=== PATIENT | female | born 1975 | race Caucasian/White ===

== ENCOUNTER 2023-02-03 23:14 | Emergency (ER) | payer MEDICAID, SELFPAY ==
--- NOTE | 2023-02-03 23:07 | ECG_ITS ---
APPROVED REPORT Exam: Resting ECG HR:61 bpm ECG Measurements Heart Rate 61 AXES HI 169 P 51 QRSd 117 QRS 37 QT 466 T 126 QTc 468 Conclusion SINUS RHYTHM WITH OCCASIONAL VENTRICULAR PREMATURE COMPLEXES LOW QRS VOLTAGE IN PRECORDIAL LEADS [QRS DEFLECTION < 1.0 mV IN CHEST LEADS] POSSIBLE ANTERIOR MYOCARDIAL INFARCTION , OF INDETERMINATE AGE [30 ms Q WAVE IN V3/V4, OR R < 0.2 mV IN V4] ABNORMAL ECG UNCONFIRMED REPORT Electronically signed by : Keo Kaur MD 02/06/2023 16:28:36
[2023-02-03 23:15] VITALS: BP 179/80; PULSE 64; PULSE 69; RESP 20; RESP 24; TEMP 36.8; O2SAT 96; O2SAT 98; BMI 46.0; BMI 49.6
--- NOTE | 2023-02-03 23:16 | XR_ITS ---
PROCEDURE INFORMATION: Exam: XR Chest Exam date and time: 02/03/2023 11:33 PM Age: 47 years old Clinical indication: Sternal or substernal pain; Additional info: Cp TECHNIQUE: Imaging protocol: Radiologic exam of the chest. Views: 1 view. COMPARISON: No relevant prior studies available. FINDINGS: Lungs: Unremarkable. No consolidation. Pleural spaces: Unremarkable. No pleural effusion. No pneumothorax. Heart/Mediastinum: Unremarkable. No cardiomegaly. Bones/joints: Unremarkable. IMPRESSION: No acute findings.
--- NOTE | 2023-02-03 23:17 | CT_ITS ---
PROCEDURE INFORMATION: Exam: CT Head Without Contrast Exam date and time: 02/03/2023 11:34 PM Age: 47 years old Clinical indication: Numbness / parasthesia; Left; Additional info: Lt side numbness TECHNIQUE: Imaging protocol: Computed tomography of the head without contrast. Radiation optimization: All CT scans at this facility use at least one of these dose optimization techniques: automated exposure control; mA and/or kV adjustment per patient size (includes targeted exams where dose is matched to clinical indication); or iterative reconstruction. REPORTING DATA: Count of CT and Cardiac NM exams in prior 12 months: This patient has received 0 known CTs and 0 known cardiac nuclear medicine studies in the 12 months prior to the current study. COMPARISON: [facility] CT HEAD W/O CONTRAST 10/03/2016 7:25 PM FINDINGS: Brain: Normal. No hemorrhage. Unremarkable white matter. No mass effect. Cerebral ventricles: No ventriculomegaly. Paranasal sinuses: Visualized sinuses are unremarkable. No fluid levels. Mastoid air cells: Visualized mastoid air cells are well aerated. Bones/joints: Unremarkable. No acute fracture. Soft tissues: Unremarkable. IMPRESSION: No acute intracranial abnormality.
[2023-02-03 23:19] VITALS: PULSE 61
--- NOTE | 2023-02-03 23:21 | PC.NURSE ---
called and spoke with jackie allisonhouse sitter to obtain ER records from current ER visit for same problem
[2023-02-03 23:23] LABS: Basophils # 0.1 K/mm3 (0-0.2); Basophils % 0.6 % (0.1-2.0); Eosinophils # 0.1 K/mm3 (0.0-0.4); Eosinophils % 1.4 % (0.1-12.0); Hematocrit 41.1 % (37.0-47.0); Lymphocytes % 25.4 % (10-50); Mean Corpuscular HGB Conc 31.6 g/dL (31.8-35.4); Mean Corpuscular Hemoglobin 28.6 pg (27.0-31.2); Mean Corpuscular Volume 90.3 fl (81-99); Mean Platelet Volume 8.4 fl (7.4-10.4); Monocytes # 0.5 K/mm3 (0.1-1.0); Neutrophils # 5.1 K/mm3 (1.8-7.8); Neutrophils % 65.6 % (37.0-80.0); Platelet Count 263 K/mm3 (142-424); Red Blood Count 4.55 M/mm3 (4.20-5.40); Red Cell Distribution Width 15.1 % (11.5-17.5); White Blood Count 7.8 K/mm3 (4.8-10.8)
[2023-02-03 23:29] LABS: Alanine Aminotransferase 31 U/L (12-78); Albumin Level 3.8 g/dl (3.5-5.0); Albumin/Globulin Ratio 1.1 (1.1-1.8); Alkaline Phosphatase 83 U/L (38-126); Aspartate Amino Transferase 34 U/L (14-36); Bilirubin,Total 0.4 mg/dl (0.2-1.3); Blood Urea Nitrogen 13 mg/dl (7-17); Calcium 8.3 mg/dl (8.4-10.2); Carbon Dioxide 29 mmol/L (22.0-30.0); Chloride 102 mmol/L (98-107); Creatinine Clearance Estimated 70 mL/min (50-200); Estimated Glomerular Filt Rate 76 ml/min (>60); GFR (African American) 92 ML/MIN (>60); Globulin 3.4 g/dL (1.3-3.2); Glucose 141 mg/dl (74-100); Sodium 139 mmol/L (136-145); Total Protein,Serum 7.2 g/dl (6.3-8.2)
[2023-02-03 23:34] LABS: C-Reactive Protein 9.4 mg/L (0-4)
--- NOTE | 2023-02-03 23:36 | PC.NURSE ---
patient gone to RAD at this time.
[2023-02-03 23:38] LABS: NT Pro Brain Natriuretic Pep. 2230 pg/mL (0-125)
[2023-02-03 23:43] LABS: Troponin I 0.02 ng/ml (0.00-0.034)
[2023-02-03 23:45] VITALS: PULSE 66; RESP 19; O2SAT 98
[2023-02-03 23:46] LABS: Erythrocyte Sedimentation Rate 21 mm/hr (0-20)
[2023-02-03 23:59] LABS: Anion Gap 11.6 mEq/L (5-15); Potassium 3.6 mmoL/L (3.5-5.1)
[2023-02-04] VITALS: PULSE 65; RESP 15; O2SAT 98
[2023-02-04 00:31] VITALS: BP 193/72; PULSE 64; O2SAT 98
[2023-02-04 00:37] LABS: Microscopic, Urine URINE MICROSCOPIC (MICROSCOPIC)
[2023-02-04 00:43] LABS: Appearance,Urine CLEAR (Clear); Bilirubin,Urine Negative (Negative); Blood, Urine 1+ (Negative); Color,Urine YELLOW (Yellow); Glucose,Urine (UA) Negative (Negative); Ketones,Urine Negative (Negative); Leukocyte Esterase,Urine TRACE (Negative); Nitrate,Urine Negative (Negative); PH,Urine 6.5 (5.0-8.5); Protein,Urine Negative (Negative); Specific Gravity, Urine 1.025 (1.005-1.030)
[2023-02-04 00:56] LABS: Bacteria,Urine 1+ /lpf; Mucus,Urine 1+ /lpf
[2023-02-04 01:05] VITALS: BP 159/74
--- NOTE | 2023-02-04 01:28 | PC.NURSE ---
Called [facility] to check on getting records sent over. they are going to send over again at this time.
[2023-02-04 02:22] LABS: Troponin I 0.02 ng/ml (0.00-0.034)
--- NOTE | 2023-02-04 02:30 | [facility].EDCP ---
Discharge Plan Disposition Patient Disposition: Home, Self-Care Prescriptions Prescriptions: No Action albuterol sulfate 2.5 mg /3 mL (0.083 %) solution for nebulization 2.5 mg inhalation Q6 Label Comments: USE 1 VIAL VIA NEBULIZER EVERY 6 HOURS NEEDED NEED FOLLOWUP FOR REFILLS lamotrigine 25 mg tablet 25 mg PO TID Label Comments: TAKE 1 TABLET BY MOUTH TWICE A DAY gabapentin 800 mg tablet 800 mg PO TID Label Comments: TAKE 1 TABLET BY MOUTH THREE TIMES A DAY naproxen sodium 550 mg tablet 550 mg PO BID Label Comments: TAKE 1 TABLET BY MOUTH EVERY 12 HOURS NEEDED FOR PAIN pravastatin 20 mg tablet 20 mg PO HS Label Comments: TAKE 1 TABLET BY MOUTH EVERY DAY metformin 500 mg tablet extended release 24 hr 500 mg PO DAILY Label Comments: TAKE 1 TABLET BY MOUTH EVERY DAY WITH EVENING MEAL escitalopram oxalate 10 mg tablet 10 mg PO DAILY Label Comments: TAKE 1 TABLET BY MOUTH EVERY DAY Referrals Follow up/Referrals: Hernandez Botello MD [Staff Physician] - See instructions Provider,MD Carlos [Primary Care Provider] - See instructions Clinical Impressions Clinical Impression: Atypical chest pain, Elevated brain natriuretic peptide (BNP) level Instructions Patient Instructions: DI for Atypical Chest Pain Discharge ED Provider: Pavreen (ED)Gen Chest Pain HPI General Chief Complaint: Chest Pain Stated Complaint: chestpain Time Seen by Provider: 02/03/23 23:40 Mode of Arrival: EMS Source of Information: Patient, EMS and Medical Record Limitations: No Limitations Description of Symptoms (Recalled from ER Triage Doc. by RN): Pt brought in by [facility] with complaints of left anterior chest pain non radiating and left arm numbness. History of Present Illness HPI narrative: pt with episode of chest pain and brought by ems - no reported chest pain at time of interview - complaint: chest pain Onset (ago): hour(s) Duration: now resolved Activity at onset: light activity Pain location: left chest Severity: moderate Risk Factors for CAD: Family Hx of CAD, Diabetes and Smoking Treatments prior to or on arrival for Cardiac Chest Pain: none NAIDA Score for Non-Stemi Age of Patient: 40-49 years old Heart Rate: 50-69 bpm Systolic Blood Pressure: 140-159 mmHg Serum Creatinine: 0.80-1.19 mg/dl CHF [place] Class: II-Pulmonary Rales or Jug Other Risk Factors: None Non-Stemi Risk Score: 79 Risk Stratification: 1-108 = Low Risk Related Data On Oral Contraceptives: No Home Medications Medication Instructions Recorded Confirmed albuterol sulfate 2.5 mg/3 mL 2.5 mg inhalation Q6 Breathing 02/04/23 02/04/23 (0.083 %) solution for nebulization problems escitalopram oxalate 10 mg tablet 10 mg PO DAILY Depression 02/04/23 02/04/23 gabapentin 800 mg tablet 800 mg PO TID Pain 02/04/23 02/04/23 lamotrigine 25 mg tablet 25 mg PO TID seizures 02/04/23 02/04/23 metformin 500 mg tablet,extended 500 mg PO DAILY Diabetes 02/04/23 02/04/23 release 24 hr naproxen sodium 550 mg tablet 550 mg PO BID Pain 02/04/23 02/04/23 pravastatin 20 mg tablet 20 mg PO HS High cholesterol 02/04/23 02/04/23 Allergies Allergy/AdvReac Type Severity Reaction Status Date / Time codeine [CODEINE] Allergy Mild Unverified 08/11/17 15:01 [facility] Disclaimer: The information contained in this section may have been updated after the patient was seen, as this information can be updated by other users. Social History Smoking Status: Current every day smoker alcohol intake: never current occupational status: unemployed Travel in the last 8 weeks: None ROS Obtained: Yes All systems reviewed & no additional complaints except as documented Physical Exam General General appearance: alert and obese Head Head exam: normocephalic Eye Eye exam: Present PERRL and EOMI ENT ENT exam: Present mucous membranes moist Neck Neck exam: Prese
[2023-02-04 02:44] VITALS: BP 155/78; PULSE 67; RESP 17; TEMP 36.8; O2SAT 98
[2023-02-06 18:09] LABS: Lamotrigine (Lamictal) <1.0 ug/mL (2.0-20.0)
== END 2023-02-04 03:41 | disposition home or self-care (01) ==
PROVIDERS: Emergency Provider Emergency Medicine
DX: R07.89 Other chest pain (principal); R20.0 Anesthesia of skin; F17.200 Nicotine dependence, unspecified, uncomplicated; E66.9 Obesity, unspecified
CPT/HCPCS: 70450; 71045; 80053; 80168; 81001; 83880; 84145; 84484; 85025; 85651; 86140; 93005; 96360; 99285

== ENCOUNTER 2023-11-30 22:55 | Outpatient (CLI) | payer MEDICAID, SELFPAY ==
[2023-11-30 19:13] LABS: Basophils # 0.1 K/mm3 (0-0.2); Basophils % 1.5 % (0.1-2.0); Eosinophils # 0.3 K/mm3 (0.0-0.4); Eosinophils % 2.7 % (0.1-12.0); Lymphocytes # 2.5 K/mm3 (0.7-4.5); Lymphocytes % 27.6 % (10-50); Mean Corpuscular HGB Conc 31.8 g/dL (31.8-35.4); Mean Corpuscular Hemoglobin 29.5 pg (27.0-31.2); Mean Corpuscular Volume 92.8 fl (81-99); Monocytes # 0.6 K/mm3 (0.1-1.0); Monocytes % 6.2 % (1.7-9.3); Neutrophils # 5.7 K/mm3 (1.8-7.8); Platelet Count 334 K/mm3 (142-424); Red Blood Count 5.07 M/mm3 (4.20-5.40); Red Cell Distribution Width 13.9 % (11.5-17.5); White Blood Count 9.1 K/mm3 (4.8-10.8)
[2023-11-30 19:25] LABS: Alanine Aminotransferase 50 U/L (12-78); Albumin Level 3.7 g/dl (3.5-5.0); Albumin/Globulin Ratio 1.1 (1.1-1.8); Alkaline Phosphatase 109 U/L (38-126); Anion Gap 10.2 mEq/L (5-15); Aspartate Amino Transferase 51 U/L (14-36); Bilirubin,Total 0.4 mg/dl (0.2-1.3); Blood Urea Nitrogen 13 mg/dl (7-17); Calcium 9.1 mg/dl (8.4-10.2); Carbon Dioxide 28 mmol/L (22.0-30.0); Chloride 103 mmol/L (98-107); Chol/HDL Ratio 3.8 (1-3.5); Cholesterol 203 mg/dl (140-200); Estimated Glomerular Filt Rate 76 ml/min (>60); GFR (African American) 92 ML/MIN (>60); Globulin 3.4 g/dL (1.3-3.2); Glucose 130 mg/dl (74-100); HDL Cholesterol 53 mg/dl (40-60); Potassium 4.2 mmoL/L (3.5-5.1); Sodium 137 mmol/L (136-145); Total Protein,Serum 7.1 g/dl (6.3-8.2); Triglycerides 168 mg/dl (30-150); VLDL Cholesterol 34 mg/dL (0-40)
[2023-11-30 19:38] LABS: Direct LDL Cholesterol 95.75 mg/dL (100-129)
[2023-11-30 19:51] LABS: 25-OH Vitamin D, Total < 12.8 ng/mL (30-100)
[2023-11-30 19:58] LABS: Thyroid Stimulating Hormone 1.35 uIU/mL (0.465-4.68)
== END 2023-11-30 23:59 ==
LOC: LAB.DROPOF 22:55
PROVIDERS: PCP Physician Assistant; Visit Provider Physician Assistant
DX: E11.9 Type 2 diabetes mellitus without complications (principal); E78.5 Hyperlipidemia, unspecified; E55.9 Vitamin D deficiency, unspecified; Z79.84 Long term (current) use of oral hypoglycemic drugs; Z79.899 Other long term (current) drug therapy
CPT/HCPCS: 80053; 80061; 82306; 84443; 85025

== ENCOUNTER 2024-01-08 08:54 | Emergency (ER) | payer MEDICAID, SELFPAY ==
[2024-01-08 08:56] VITALS: BP 199/90; PULSE 71; RESP 20; TEMP 36.7; O2SAT 98; BMI 49.6
--- NOTE | 2024-01-08 08:56 | ED_ITS ---
Discharge Plan Disposition Patient Disposition: Home, Self-Care Condition: Good Prescriptions Prescriptions: New epinephrine [EpiPen 2-Geoff] 0.3 mg/0.3 mL auto-injector 0.3 mg IM Q10M PRN (Reason: anaphylaxis) Qty: 2 0RF Rx Instructions: for 2 doses doxycycline hyclate 100 mg tablet,delayed release (DR/EC) 100 mg PO BID 7 Days Qty: 14 0RF No Action albuterol sulfate 2.5 mg /3 mL (0.083 %) solution for nebulization 2.5 mg inhalation Q6 Qty: 180 0RF escitalopram oxalate 10 mg tablet 10 mg PO DAILY Qty: 90 0RF lamotrigine 25 mg tablet 25 mg PO TID 30 Days Qty: 90 2RF metformin 500 mg tablet extended release 24 hr 500 mg PO DAILY Qty: 90 0RF pravastatin 20 mg tablet 20 mg PO HS Qty: 90 0RF ergocalciferol (vitamin D2) 1,250 mcg (50,000 unit) capsule 1,250 mcg PO WEEKLY Qty: 13 3RF (DME) blood-glucose meter Kit See Rx Instructions .ROUTE .MEDSUPPLY Qty: 1 0RF Rx Instructions: As directed or bid Please give patient the glucometer,test stripes and lancets that her Insurance will pay for. Referrals Follow up/Referrals: Kiarra Escalona PA [Primary Care Provider] - See instructions Activity Restrictions/Add. Instructions Additional Instructions/Restrictions: Please take the antibiotics as directed for your cellulitis and monitor that area. I have also written a prescription for an EpiPen as you requested. Please return with any new or worsening symptoms. Clinical Impressions Clinical Impression: Cellulitis Instructions Patient Instructions: DI for Cellulitis -- Adult, Cellulitis Discharge ED Provider: Yousuf Braxton General Adult HPI General Chief complaint: Skin/Abscess/Foreign Body Stated complaint: spider bite left leg Time Seen by Provider: 01/08/24 08:56 History of Present Illness HPI narrative: The patient presents with a chief complaint of a suspected spider bite on her leg, which she first noticed two days ago. The bite has been increasing in size and is now hot to the touch. The patient identified the onset of symptoms while in the bathtub and is concerned due to a history of being allergic to various insects and having recurrent cellulitis, particularly in the legs. The patient describes the current sensation at the bite site as painful, not itchy, and expresses a burning sensation. She has a history of cellulitis that was resistant to treatment with antibiotics in the past. The patient requests her prescriptions, including an EpiPen, to be filled at a specific pharmacy where she usually gets her medications. Please note that above description of symptoms, in this electronic medical record under categorization of recalled from ER triage doctor by RN are reflective of an initial nursing assessment, however, is not reflective of my full history and physical exam that was personally taken and clarified. Consequentially, this preceding description of symptoms, which may include the patient's categorized chief complaint in the EMR, do not reflect my personal clinical impression, and the ultimate description of history of present illness and patient stated complaints should be deferred to this section of the note. Unless stated otherwise or congruent with this section of the note, additional signs, symptoms, or incongruence should be interpreted as inaccurate with my clinical impression. Related Data Previous Rx's Medication Instructions Recorded albuterol sulfate 2.5 mg/3 mL 2.5 mg (3 mL) inhalation Q6 12/21/23 (0.083 %) solution for nebulization Breathing problems #180 mL blood-glucose meter #1 ea 12/21/23 ergocalciferol (vitamin D2) 1,250 1,250 mcg PO WEEKLY #13 caps 12/21/23 mcg (50,000 unit) capsule escitalopram oxalate 10 mg tablet 10 mg PO DAILY Depression #90 tabs 12/21/23 lamotrigine 25 mg tablet 25 mg PO TID seizures 30 days #90 12/21/23 tabs metformin 500 mg tablet,extended 500 mg PO DAILY Diabetes #90 tabs 12/21/23 release 24 hr pravastatin 20 mg tablet 20 mg PO HS High cholesterol #90 12/21/23 tabs doxycycline hyclate 100 mg 100 mg PO BID 7 days #14 tabs 01/08/24 tablet,delayed release epinephrine 0.3 mg/0.3 mL 0.3 mg (0.3 mL) IM Q10M PRN 01/08/24 injection, auto-injector (EpiPen anaphylaxis #2 ea 2-Geoff) Allergies Allergy/AdvReac Type Severity Reaction Status Date / Time codeine [CODEINE] Allergy Severe Anaphylaxis Verified 01/08/24 09:36 red dye Allergy Severe Anaphylaxis Verified 01/08/24 09:36 venom-wasp Allergy Severe Anaphylaxis Verified 01/08/24 09:36 [facility] Disclaimer: The information contained in this section may have been updated after the patient was seen, as this information can be updated by other users. Medical History (Updated 01/08/24 @ 09:30 by Yousuf Braxton MD) Stroke Heart attack Surgical History (Updated 11/30/23 @ 13:18 by Reina Mao MA) [place] teeth removed H/O hysterectomy with oophorectomy Family History (Updated 11/30/23 @ 13:16 by Reina Mao MA) Other Cancer Diabetes Heart attack Hypertension Stroke Social History (Updated 02/04/23 @ 02:51 by Gen CORONADO)MD) Smoking Status: Current every day smoker alcohol intake: never current occupational status: unemployed Travel in the last 8 weeks: None ROS Obtained: Yes other As per HPI Physical Exam General General appearance: alert and in no apparent distress Head Head exam: atraumatic and normocephalic Eye Eye exam: Present normal appearance Neck Neck exam: Present normal inspection Chest Chest inspection: Present normal inspection and symmetric chest wall rise Respiratory Respiratory exam: Present normal lung sounds bilaterally; Absent respiratory distress Cardiovascular Cardiovascular exam: Present regular rate and normal rhythm Abdominal Exam Abdominal exam: Present soft Neurological Exam Neurological exam: Present alert and oriented X3 Psychiatric Psychiatric exam: Present normal affect and normal mood Skin Skin exam: Present warm and dry Other Other exam information: Erythema, tenderness to palpation, measuring approximately 3 cm, on posterior aspect of left thigh, associated induration, fluctuance, or pain beyond margins of lesion. Medical Decision Making Medical Records Medical records reviewed: Yes I reviewed the patient's medical records. Moise Inquiry Pt receiving controlled substance: No Vital Signs: 01/08/24 08:56 01/08/24 09:34 Temperature 98.0 F 98.0 F Temperature Source Oral Oral Pulse Rate 70 Pulse Rate [Right] 71 Respiratory Rate 20 19 Blood Pressure 156/72 H Blood Pressure [Left Arm] 199/90 H Blood Pressure Mean [Left Arm] 126 Blood Pressure Source [Left Arm] Automatic Cuff 02 Sat by Pulse Oximetry 98 Oxygen Delivery Method Room Air Room Air Medical Decision Narrative: Patient with history and exam per above presenting for evaluation of lesion on posterior aspect of left thigh Diagnoses considered include cellulitis, abscess, insect bite, no clinical evidence at this time of NSTI, or other acute surgical pathology ED workup and treatment included: [id number] ultrasound of lesion, revealing cobblestoning, no fluid collection My clinical impression at this time is most consistent with cellulitis, for which patient will be treated with course of antibiotics I discussed my clinical impression with patient and answered all questions. At this time, the evidence for any other entities in the differential is insufficient to warrant any further testing or ED observation. This was explained to the patient. The patient was advised that persistent or worsening symptoms require further evaluation. I confirmed the patient's understanding of this discussion. Critical Care Critical Care Time Critical Care Time: No
[2024-01-08 09:34] VITALS: BP 156/72; PULSE 70; RESP 19; TEMP 36.7; O2SAT 98
== END 2024-01-08 09:40 | disposition home or self-care (01) ==
LOC: ER 09:36
PROVIDERS: Emergency Provider Emergency Medicine; PCP Physician Assistant
DX: L03.116 Cellulitis of left lower limb (principal)
CPT/HCPCS: 99283

== ENCOUNTER 2024-01-08 11:20 | Outpatient (CLI) | payer MEDICAID, SELFPAY ==
--- NOTE | 2024-01-08 11:27 | CT_ITS ---
FINAL REPORT TECHNIQUE: Thin section axial images were obtained from the lung apices to the upper abdomen by computed tomography. Reformatted images were obtained and reviewed. This study was performed with techniques to keep radiation doses al low as reasonably achievable (ALARA). Individualized dose reduction techniques using automated exposure control or adjustment of mA and/or kV according to the patient's size were employed. CLINICAL HISTORY: lung cancer screening smoker 35 years, 1 ppd; currently vapes, former cigarette smoker hx of uterine cancer father hx of lung cancer hx COPD, emphysema, CHF FINDINGS: CHEST CT LOW DOSE CTDI vol (mGy): 2.90 DLP (mGy-cm): 80.73 There is no axillary adenopathy. There is no mediastinal or hilar mass or adenopathy. The heart is normal in size. There is no pericardial or pleural effusion. There is mild pulmonary scarring. Lung window images demonstrate a 4 mm nodule in the left lower lobe on image #33. A calcified granuloma is seen in the left lower lobe.. Limited images of the upper abdomen reveal postoperative changes from cholecystectomy.. IMPRESSION: Lung-RADS category 2. Recommend 12 month follow up low dose chest CT. Authenticated and ERN
[2024-01-08] MEDS: ALBUTEROL 0.083% 2.5 MG/3 ML NEB IH (13:48)
== END 2024-01-08 23:59 | disposition home or self-care (01) ==
LOC: RAD 11:21
PROVIDERS: PCP Physician Assistant; Visit Provider Physician Assistant
DX: Z87.891 Personal history of nicotine dependence (principal); R06.02 Shortness of breath
CPT/HCPCS: 71271; 94060; 94726; 94729

== ENCOUNTER 2024-03-26 19:16 | Emergency (ER) | payer MEDICAID, SELFPAY ==
[2024-03-26 19:16] VITALS: BP 154/92; PULSE 104; RESP 16; TEMP 37.5; O2SAT 95; BMI 41.3
--- NOTE | 2024-03-26 19:47 | ED_ITS ---
Discharge Plan Disposition Patient Disposition: Home, Self-Care Chief Complaint: Allergic Reaction Prescriptions Prescriptions: No Action (DME) blood-glucose meter [OneTouch Ultra2 Meter] Misc See Rx Instructions .ROUTE .MEDSUPPLY Qty: 1 Patient Comments: USE DIRECTED Rx Instructions: As directed Ozempic 0.25 mg or 0.5 mg (2 mg/3 mL) pen injector 0.25 mg SQ WEEKLY Qty: 3 2RF Rx Instructions: for 4 weeks escitalopram oxalate 10 mg tablet 10 mg PO DAILY Qty: 90 0RF lamotrigine 25 mg tablet 25 mg PO TID 30 Days Qty: 90 2RF pravastatin 20 mg tablet 20 mg PO HS Qty: 90 0RF ergocalciferol (vitamin D2) 1,250 mcg (50,000 unit) capsule 1,250 mcg PO WEEKLY Qty: 14 3RF amitriptyline 10 mg tablet 10 mg PO HS Qty: 30 2RF albuterol sulfate 2.5 mg /3 mL (0.083 %) solution for nebulization 2.5 mg inhalation Q6 Qty: 180 0RF (DME) OneTouch Ultra Test Strip See Rx Instructions .ROUTE .COMPLEX Qty: 100 2RF Dose Instruction: DIRECTED OR TWICE DAILY Rx Instructions: DIRECTED OR TWICE DAILY epinephrine [EpiPen 2-Geoff] 0.3 mg/0.3 mL auto-injector 0.3 mg IM Q10M PRN (Reason: anaphylaxis) Qty: 2 0RF Rx Instructions: for 2 doses Referrals Follow up/Referrals: eKo Kaur MD [Primary Care Provider] - See instructions Clinical Impressions Clinical Impression: Bee sting Print Language Print Language: [place] Verde[place] Discharge ED Provider: Ameya Amato General Adult HPI General Chief complaint: Allergic Reaction Stated complaint: allergic reaction Time Seen by Provider: 03/26/24 19:20 Mode of Arrival: EMS Source of Information: Patient Limitations: No Limitations Description of Symptoms (Recalled from ER Triage Doc. by RN): patient stated she was walking her daily walk when she seen a bees nest. patient assumes thats when she was stung approxiamately 3 times on her legs. patient did not use her epi pen, she stated that it hurts and she couldnt use it on her self. History of Present Illness HPI narrative: Patient is a 49-year-old female past medical history of the allergy currently has EpiPen who presents emergency department for evaluation of a bee sting. Sting happened approximately an hour prior to arrival over her left leg. She did not use her EpiPen. Prior to arrival EMS gave Benadryl, Solu-Medrol. EpiPen was not administered. She presents here for continued evaluation Related Data Home Medications ?Medication ?Instructions ?Recorded ?Confirmed blood-glucose meter (OneTouch #1 ea 02/18/24 02/18/24 Ultra2 Meter) Previous Rx's ?Medication ?Instructions ?Recorded albuterol sulfate 2.5 mg/3 mL 2.5 mg (3 mL) inhalation Q6 12/21/23 (0.083 %) solution for nebulization Breathing problems #180 mL epinephrine 0.3 mg/0.3 mL 0.3 mg (0.3 mL) IM Q10M PRN 01/08/24 injection, auto-injector (EpiPen anaphylaxis #2 ea 2-Geoff) blood sugar diagnostic (OneTouch #100 ea 02/17/24 Ultra Test strips) amitriptyline 10 mg tablet 10 mg PO HS neuropathy #30 tabs 02/18/24 ergocalciferol (vitamin D2) 1,250 1,250 mcg PO WEEKLY #14 caps 02/18/24 mcg (50,000 unit) capsule escitalopram oxalate 10 mg tablet 10 mg PO DAILY Depression #90 tabs 02/18/24 lamotrigine 25 mg tablet 25 mg PO TID seizures 30 days #90 02/18/24 tabs pravastatin 20 mg tablet 20 mg PO HS High cholesterol #90 02/18/24 tabs semaglutide 0.25 mg or 0.5 mg (2 0.25 mg (0.368 mL) SQ WEEKLY #3 mL 02/18/24 mg/3 mL) subcutaneous pen injector (Ozempic) Allergies Allergy/AdvReac Type Severity Reaction Status Date / Time codeine [CODEINE] Allergy Severe Anaphylaxis Verified 02/18/24 14:41 red dye Allergy Severe Anaphylaxis Verified 02/18/24 14:41 venom-wasp Allergy Severe Anaphylaxis Verified 02/18/24 14:41 paprika Allergy Mild Verified 03/26/24 19:35 [facility] Disclaimer: The information contained in this section may have been updated after the patient was seen, as this information can be updated by other users. Medical History (Updated 03/26/24 @ 19:49 by Ameya Amato MD) Stroke Heart attack Surgical History (Updated 11/30/23 @ 13:18 by Reina Mao MA) [place] teeth removed H/O hysterectomy with oophorectomy Family History (Updated 11/30/23 @ 13:16 by Reina Mao MA) Other Cancer Diabetes Heart attack Hypertension Stroke Social History (Updated 02/04/23 @ 02:51 by Gen CORONADO)MD) Smoking Status: Current every day smoker alcohol intake: never current occupational status: unemployed Travel in the last 8 weeks: None ROS Obtained: Yes Systems reviewed as appropriate & no additional complaints except as documented Physical Exam General General appearance: alert and in no apparent distress Head Head exam: atraumatic and normocephalic Eye Eye exam: Present PERRL and EOMI ENT ENT exam: Present mucous membranes moist Neck Neck exam: Present normal inspection Chest Chest inspection: Present normal inspection and symmetric chest wall rise Respiratory Respiratory exam: Present normal lung sounds bilaterally; Absent respiratory distress Cardiovascular Cardiovascular exam: Present regular rate and normal rhythm Abdominal Exam Abdominal exam: Present soft; Absent tenderness Extremities Exam Extremities exam: Present normal inspection Neurological Exam Neurological exam: Present alert Psychiatric Psychiatric exam: Present normal affect Skin Skin exam: Present warm, dry and other (No diffuse urticaria. There are 2 papules 1 over the left chung, 1 over the left distal thigh that are not oozing.) Medical Decision Making Moise Inquiry Pt receiving controlled substance: No Vital Signs: 03/26/24 19:16 Temperature 99.5 F Temperature Source Oral Pulse Rate [Right Radial] 104 H Respiratory Rate 16 Blood Pressure [Right Arm] 154/92 H Blood Pressure Mean [Right Arm] 112 02 Sat by Pulse Oximetry 95 Oxygen Delivery Method Room Air Medical Decision Narrative: In summary patient is a 49-year-old female past medical history described above presents emergency department for evaluation of a bee sting. Patient is hemodynamically stable nontoxic-appearing upon arrival, afebrile. Patient is not in anaphylaxis upon my evaluation and never met criteria for anaphylaxis based on history. Patient has been given Benadryl and Solu-Medrol prior to arrival. Patient will undergo a period of observation for progression of reaction versus stability. The patient was placed in observation status at 7:30 PM. Medical necessity for observational status is serial physical exams for mon itoring for progression of allergic reaction. The patient was provided serial reevaluations which showed no progressive reaction, no criteria for anaphylaxis, no worsening allergic reaction. Patient has EpiPen at home at her disposal and was encouraged to use that should anaphylaxis present in future stings. Patient is appropriate for discharge at this time was given return precautions. Total time in observation was 30 minutes. Critical Care Critical Care Time Critical Care Time: No
--- NOTE | 2024-03-26 20:28 | PC.NURSE ---
[facility] contacted per MD request for patient allergy of red dye, to which she is requesting rx of Benadryl sent to [facility] pharmacy in [place]. Spoke with pharmacist who suggests Zyrtec liquid without red dye be prescribed. MD notified.
[2024-03-26 20:36] VITALS: BP 146/76; PULSE 80; RESP 20; TEMP 36.7; O2SAT 96
== END 2024-03-26 20:38 | disposition home or self-care (01) ==
PROVIDERS: Emergency Provider Emergency Medicine; PCP Internal Medicine Adolescent Medicine
DX: T63.441A Toxic effect of venom of bees, accidental (unintentional), initial encounter (principal)
CPT/HCPCS: 99283